=== PATIENT | female | born 1975 | race Hispanic/Latino ===

== ENCOUNTER 2019-04-06 15:02 | Emergency (ER) | payer OTHER, SELFPAY ==
[2019-04-06] MEDS ORDERED: Lidocaine 1% PF 5 ML VIAL ONE (15:17)
--- NOTE | 2019-04-06 16:06 | RAD ---
LEFT FIFTH FINGER THREE VIEWS: 04/06/19 HISTORY: Laceration while cutting tube. There is soft tissue injury to the distal fifth finger. Degenerative changes are noted but no evidenc e for acute fracture or dislocation. No evidence for foreign body. IMPRESSION: Soft tissue injury distal fifth finger. Mild degenerative changes. No osseous abnormality or foreign body. POS: OFF
[2019-04-06] MEDS ORDERED: HYDROcodone/Acetaminophen 5/325 mg Tablet ONE (16:12)
== END 2019-04-06 16:55 | disposition home or self-care (01) ==
LOC: ERS 15:02
DX: S61.317A Laceration without foreign body of left little finger with damage to nail, initial encounter (principal); W26.0XXA Contact with knife, initial encounter
CPT/HCPCS: 26951; J2001